=== PATIENT | male | born 1950 | race Caucasian/White ===

== ENCOUNTER → 2017-11-07 14:49 | Outpatient (CLI) | payer MEDICARE, OTHER, SELFPAY ==
--- NOTE | 2017-11-07 14:58 | CA_ITS ---
PROCEDURE: 2-D M-mode and color Doppler study INDICATIONS FOR THE TEST: Chest pain COPD Heart Murmur Tobacco Smoking Palpitations Fatigue Syncope Edema Hypertension Diabetes Mellitus Rheumatic Fever SOB DOEXObesity Hyperlipidemia Family History HD Additional History H/O IRREG HR PATIENT INFORMATION HEIGHT: 73 WEIGHT:212 GENDER: Male B/P:136/80 2-D/M-MODE INTERPRETATION: 2-D MEASUREMENTS OBSERVED VALUES IN CMS Right Ventricular Dimension (RVDd) 2.8 Interventricular Septum (Thickness)(IVsd) .8 Left Ventricular Internal Dimensions(LVIDd) 4.8 Left Ventricular Posterior Wall (Thickness)(LVPWd) .8 Aortic Root 3.2 Aortic Cusp Separation 2.4 Left Atrial Dimensions (LAD) 3.2 2D 1. Left atrium is qualitatively mildly enlarged, left ventricle is qualitatively mildly dilated, there is no concentric left ventricular hypertrophy, visually estimated ejection fraction 55% with no obvious regional wall motion abnormality. 2. The right atrium is normal size, right ventricle is mildly enlarged with normal contractility. 3. The aortic valve is trileaflet, thickened and calcified leaflet continue to display mobility. 4. The mitral and tricuspid valve leaflets are minimally thickened. 5. The pulmonic valve is poorly visualized. 6. No significant pericardial effusion noted. DOPPLER INTERROGATION: Doppler interrogation of the aortic, mitral and tricuspid valvular presence of severe aortic, mild mitral and tricuspid regurgitation, tricuspid and jet velocity insufficient for calculation of the right ventricular systolic pressure, diastolic parameters are inconclusive. CONCLUSION: 1. Mildly enlarged left atrium, mildly dilated left ventricle, preserved left ventricular systolic function, visually estimated ejection fraction 55% with no obvious regional wall motion abnormality diastolic parameters are inconclusive. 2. Thickened and calcified aortic valve without aortic stenosis, there is severe aortic insufficiency 3. Mild mitral and tricuspid regurgitation 4. No significant pericardial effusion noted.
== END ==
PROVIDERS: PCP Internal Medicine; Visit Provider Internal Medicine
DX: R06.02 Shortness of breath (principal)
CPT/HCPCS: 93306

== ENCOUNTER 2017-11-30 10:49 | Day surgery (SDC) | payer MEDICARE, OTHER, SELFPAY ==
[2017-11-30] VITALS (8 sets, daily range): BP systolic 114–161; BP diastolic 67–87; PULSE 55–62; RESP 18–20; O2SAT 97–98; BMI 29.4
--- NOTE | 2017-11-30 10:55 | CA_ITS ---
Procedure: Transesophageal echocardiogram Indication for procedure: Shortness of breath, aortic insufficiency. Procedure: Patient was brought into cardiac catheter lab holding area in hemodynamically stable condition, after the informed consent, conscious sedation was provided by anesthesiologist, local anesthesia was applied, and transesophageal echocardiogram was performed without any difficulty. Patient tolerated the procedure well. Findings: 1. Left atrium is mildly enlarged, left atrial appendage is free of thrombus, there is good appendage flow by spectral Doppler. 2. The right atrium is normal size, 3. The intra-atrial septum is intact, there is no flow across the intra-atrial septum, agitated saline contrast study fails to identify intracardiac shunt. 4. The aortic valve leaflets are minimally thickened, there are significant degenerative changes seen on the right coronary cusp, possibility of regurgitation cannot be excluded. There is no aortic stenosis, there is severe aortic insufficiency. 5. The mitral valve leaflets are minimally thickened, there is mild prolapse of the posterior mitral leaflet, there is mild mitral regurgitation, spectral Doppler of the pulmonary vein is normal. 6. The tricuspid valve leaflets are minimally thickened, there is mild tricuspid regurgitation 7. The pulmonic valve is grossly normal. 8. The right ventricle is normal size and contractility. 9. The left ventricle is normal size, there is overall preserved left ventricular systolic function, visually estimated ejection fraction of 55-60% with no obvious regional wall motion abnormality. 10. Ascending, arch and descending thoracic aorta is normal. Conclusion: 1. Mildly enlarged left atrium, normal left ventricular size, preserved left ventricular systolic function, visually estimated ejection fraction 55-60% with no obvious regional wall motion abnormality. 2. Abnormally aortic valve is described above associated with severe aortic insufficiency 3. Mitral valve prolapse associated with mild mitral regurgitation 4. Agitated saline contrast study fails to identify intracardiac shunt 5. No significant pericardial effusion noted.
--- NOTE | 2017-11-30 12:39 | P.PN_ITS ---
[facility] Anesthesia Checklist - Structural Data Admitted From: Home Planned Operative Procedure/s: radha Consent for Planned Operative Procedure(s) Verified: Yes - Airway Assessment C-Spine Mobility Assessed: Yes TMJ Mobility Assessed: Yes Dentition: Good Dentition - Neurological Assessment Level of Consciousness: Awake, Alert - Anesthesia Plan Anesthesia Risk discussed: Yes Anesthesia Plan: Verified ASA Class: III Anesthesia Type: MAC [facility] Anesthesia HX I have reviewed the patient's past medical history: Yes Medical History: Reports:: Hypertension, Supraventricular Tachycardia Denies:: Cancer, Diabetes Mellitus Type 1, Diabetes Mellitus Type 2, MRSA, Seizures Other Surgeries: Yes: No Previous Surgery Amputation: No Fractures: No *Family Hx:: No significant family history
== END 2017-11-30 14:20 | disposition home or self-care (01) ==
PROVIDERS: PCP Internal Medicine; Visit Provider Internal Medicine Cardiovascular Disease
DX: I35.1 Nonrheumatic aortic (valve) insufficiency (principal)
CPT/HCPCS: 93312

== ENCOUNTER 2017-12-01 07:59 | Day surgery (SDC) | payer MEDICARE, OTHER, SELFPAY ==
[2017-12-01] VITALS (20 sets, daily range): BP systolic 94–133; BP diastolic 43–82; PULSE 45–63; RESP 16–18; TEMP 36.9–37.1; O2SAT 90–100; BMI 29.4
--- NOTE | 2017-12-01 | IR_ITS ---
CARDIAC CATHETERIZATION DATE OF CATHETERIZATION:12/01/2017 1:23 PM PROCEDURES: 1. Right heart catheterization 2. Left heart catheterization 3. Left ventriculogram 4. Selective coronary angiogram 5. Catheter placement in the ascending aorta 6. Ascending aortography INDICATION FOR TEST: 1. Severe aortic insufficiency 2. Preoperative evaluation for mitral valve replacement 3. Hypertension Informed consent was obtained prior to the procedure. COMPLICATIONS: None ESTIMATED BLOOD LOSS: Less than 10 ml. TECHNIQUE: One percent lidocaine was used to anesthetize the right anterior aspect of the right wrist. The right radial artery was accessed via the Seldinger technique and a 6 English hydrophilic sheath was placed in the right radial artery. Following this one percent lidocaine was used to anesthetize the right anterior aspect of the right neck. The right internal jugular vein was accessed via the Seldinger technique and a 7 English sheath was placed in the right internal jugular vein. Following this an arterial cocktail was administered using heparin verapamil and nitroglycerin into the right radial sheath. Over the wire a pigtail catheter was placed in the ascending aorta and ascending aortography was performed A trap catheter was used to perform left heart catheterization left ventriculogram and selective coronary angiography while a Colmesneil-Selina catheter was used to perform right heart catheterization. Saturations were obtained in the pulmonary artery and right atrium. At the end of the procedure the arterial sheath was removed good hemostasis was achieved using Traclet band. Patient was transferred to the postop holding area in stable condition for venous sheath removal ANGIOGRAPHIC RESULTS: 1. The left main artery normal 2. The left anterior descending artery has normal 3. The circumflex artery is dominant and normal 4. The right coronary artery nondominant normal 5. The CAIN ventriculogram reveals 65% 6. The left ventricular end-diastolic pressure 10 mmHg 7. The caty ascending transverse and proximal descending aorta is of normal caliber. +4 aortic insufficiency is identified HEMODYNAMICS: Right atrial pressure is 12 mm Hg. Pulmonary arterial pressure is 32/18 mm Hg. Pulmonary artery occlusion pressure is 15 mm Hg. SATURATIONS: RA is 80 %. PA is 77 %. IMPRESSION: 1. Normal coronary arteries 2. Normal ejection fraction 3. Normal ascending transverse and proximal descending aorta caliber 4. 4+ aortic insufficiency 5. Mild pulmonary hypertension PLAN: 1. Will referred to Dr. FLORES for additional recommendations
[2017-12-01 08:56] LABS: Eosinophils # 0.2 K/mm3 (0.0-0.4); Eosinophils % 4.9 % (0.1-12.0); Hematocrit 45.8 % (42.0-52.0); Lymphocytes % 23.6 K/mm3 (10-50); Mean Corpuscular HGB Conc 32.7 g/dL (31.8-35.4); Mean Corpuscular Hemoglobin 28.8 pg (27.0-31.2); Mean Corpuscular Volume 88.2 fl (80-94); Mean Platelet Volume 7.3 fl (7.4-10.4); Monocytes # 0.2 K/mm3 (0.1-1.0); Monocytes % 5.8 % (1.7-9.3); Neutrophils # 2.7 K/mm3 (1.8-7.8); Neutrophils % 64.8 % (37.0-80.0); Platelet Count 253 K/mm3 (142-424); Red Cell Distribution Width 13.3 % (11.5-17.5); White Blood Count 4.2 K/mm3 (4.8-10.8)
[2017-12-01 09:02] LABS: Anion Gap 9.2 mEq/L (5-15); Blood Urea Nitrogen 17 mg/dL (7-18); Carbon Dioxide 28 mmol/L (21.0-32.0); Chloride 105 mmol/L (98-107); Creatinine Clearance Estimated 93 mL/min (0-300); Creatinine,Serum 1.07 mg/dL (0.70-1.30); Estimated Glomerular Filt Rate 69 ml/min (>60); GFR (African American) 83 ML/MIN (>60); Glucose 109 mg/dL (74-106); Potassium 4.2 mmoL/L (3.5-5.1); Sodium 138 mmol/L (136-145)
== END 2017-12-01 16:59 | disposition home or self-care (01) ==
LOC: CATHLAB 08:00
PROVIDERS: PCP Internal Medicine; Visit Provider Internal Medicine
DX: I35.1 Nonrheumatic aortic (valve) insufficiency (principal); R06.09 Other forms of dyspnea; I10 Essential (primary) hypertension; R93.1 Abnormal findings on diagnostic imaging of heart and coronary circulation
CPT/HCPCS: 80048; 85025; 93460; 93567; 99152; C1725; C1769; C1894; J1644; Q9966; Q9967

== ENCOUNTER → 2017-12-05 08:34 | Outpatient (CLI) | payer MEDICARE, OTHER, SELFPAY | PROVIDERS: Visit Provider Physician Assistant | DX: I47.1 Supraventricular tachycardia (principal); I10 Essential (primary) hypertension; I44.0 Atrioventricular block, first degree; I35.1 Nonrheumatic aortic (valve) insufficiency; I38 Endocarditis, valve unspecified; R06.09 Other forms of dyspnea; R93.1 Abnormal findings on diagnostic imaging of heart and coronary circulation | CPT/HCPCS: 36415; 87040 ==

== ENCOUNTER 2018-02-01 12:55 | Outpatient (RCR) | payer MEDICARE, OTHER, SELFPAY | END 2018-03-12 14:57 | disposition home or self-care (01) | LOC: PT 12:55 | PROVIDERS: PCP Internal Medicine; Visit Provider Thoracic Surgery (Cardiothoracic Vascular Surgery) | DX: Z45.2 Encounter for adjustment and management of vascular access device (principal) | CPT/HCPCS: 93798 ==

== ENCOUNTER → 2019-03-18 11:02 | Outpatient (CLI) | payer MEDICARE, OTHER, SELFPAY ==
--- NOTE | 2019-03-18 11:05 | CA_ITS ---
PROCEDURE: 2-D M-mode and color Doppler study INDICATIONS FOR THE TEST: Chest pain COPD Heart Murmur Tobacco Smoking Palpitations Fatigue Syncope Edema Hypertension+Diabetes Mellitus Rheumatic Fever SOB NOAV Obesity Hyperlipidemia Family History HD Additional History AV replacement 2018,bradycardia PATIENT INFORMATION HEIGHT:72 WEIGHT:214 GENDER: Male B/P:114/72 2-D/M-MODE INTERPRETATION: 2-D MEASUREMENTS OBSERVED VALUES IN CMS Right Ventricular Dimension (RVDd) 2.7 Interventricular Septum (Thickness)(IVsd) 1.1 Left Ventricular Internal Dimensions(LVIDd) 4.2 Left Ventricular Posterior Wall (Thickness)(LVPWd) 0.9 Aortic Root 2.8 Aortic Cusp Separation 1.8 Left Atrial Dimensions (LAD) 4.3 2D 1. Left atrium is mildly enlarged, left ventricle is normal size, there is mild concentric left ventricular hypertrophy, visually estimated ejection fraction 50% with no regional wall motion abnormality. 2. The right atrium and right ventricle are normal size and contractility. 3. There is mild prosthetic valve noted in the aortic position, the valve is well seated. 4. The mitral and tricuspid valve leaflets are minimally thickened. 5. The pulmonic valve is poorly visualized. 6. No significant pericardial effusion noted. DOPPLER INTERROGATION: 1. The maximum aortic out flow velocity recorded across the prosthetic valve is 2.4 m/s, resulting in a mean gradient across valve of 12 mm of mild aortic, valve area is 1.7 sq cm, which does not represent any significant aortic outflow obstruction, there is no aortic insufficiency. 2. The mitral inflow velocity within normal range, there is no mitral stenosis, there is mild mitral regurgitation. Grade 1 diastolic dysfunction seen without tissue Doppler evidence of raised left atrial pressure. 3. There is mild tricuspid regurgitation noted, tricuspid regurgitation jet velocity is inadequate for calculation of the right ventricular systolic pressure. CONCLUSION: 1. Mildly enlarged left atrium, normal left ventricular size, mild concentric left ventricular hypertrophy, visually estimated ejection fraction 50% with no regional wall motion abnormality, grade 1 diastolic dysfunction seen without tissue Doppler evidence of raised left atrial pressure. 2. Normal functioning bio prosthetic valve in aortic position 3. No significant pericardial effusion noted.
== END ==
PROVIDERS: PCP Internal Medicine; Visit Provider Urology
DX: Z95.4 Presence of other heart-valve replacement (principal)
CPT/HCPCS: 93306

== ENCOUNTER → 2020-11-24 12:54 | Outpatient (CLI) | payer MEDICARE, OTHER, SELFPAY | PROVIDERS: PCP Internal Medicine; Visit Provider Urology | DX: I10 Essential (primary) hypertension (principal); I51.89 Other ill-defined heart diseases; R00.1 Bradycardia, unspecified; Z95.4 Presence of other heart-valve replacement | CPT/HCPCS: 93306 ==

== ENCOUNTER → 2021-12-10 12:39 | Outpatient (CLI) | payer MEDICARE, OTHER, SELFPAY ==
[2021-12-10 14:25] LABS: Basophils # 0.1 K/mm3 (0-0.2); Basophils % 1.3 % (0.1-2.0); Eosinophils # 0.3 K/mm3 (0.0-0.4); Eosinophils % 5.3 % (0.1-12.0); Hematocrit 43.3 % (42.0-52.0); Hemoglobin 14.6 g/dL (14.1-18.0); Lymphocytes # 1.2 K/mm3 (0.7-4.5); Lymphocytes % 23.6 % (10-50); Mean Corpuscular HGB Conc 33.7 g/dL (31.8-35.4); Mean Corpuscular Hemoglobin 30.4 pg (27.0-31.2); Mean Platelet Volume 8.7 fl (7.4-10.4); Monocytes # 0.3 K/mm3 (0.1-1.0); Monocytes % 6.3 % (1.7-9.3); Neutrophils # 3.1 K/mm3 (1.8-7.8); Neutrophils % 63.5 % (37.0-80.0); Platelet Count 286 K/mm3 (142-424); Red Cell Distribution Width 13.9 % (11.5-17.5); White Blood Count 4.9 K/mm3 (4.8-10.8)
[2021-12-10 16:26] LABS: Alanine Aminotransferase 26 U/L (12-78); Albumin Level 4.1 g/dl (3.5-5.0); Albumin/Globulin Ratio 1.6 (1.1-1.8); Alkaline Phosphatase 47 U/L (38-126); Anion Gap 11.6 mEq/L (5-15); Aspartate Amino Transferase 28 U/L (17-59); Blood Urea Nitrogen 21 mg/dl (9-20); Calcium 8.3 mg/dl (8.4-10.2); Carbon Dioxide 26 mmol/L (22.0-30.0); Chloride 103 mmol/L (98-107); Chol/HDL Ratio 3.9 (1-3.5); Cholesterol 225 mg/dl (140-200); Estimated Glomerular Filt Rate 95 ml/min (>60); GFR (African American) 115 ML/MIN (>60); Globulin 2.5 g/dL (1.3-3.2); Glucose 89 mg/dl (74-100); HDL Cholesterol 57 mg/dl (40-60); Potassium 4.6 mmoL/L (3.5-5.1); Sodium 136 mmol/L (136-145); Total Protein,Serum 6.6 g/dl (6.3-8.2); Triglycerides 90 mg/dl (30-150); VLDL Cholesterol 18 mg/dL (0-40)
[2021-12-10 16:37] LABS: Direct LDL Cholesterol 123.51 mg/dL (100-129)
[2021-12-10 16:56] LABS: Prostate Specific Ag Screen 1.4 ng/ml (0.0-4.0)
== END ==
PROVIDERS: Visit Provider Internal Medicine
DX: I35.1 Nonrheumatic aortic (valve) insufficiency (principal); I47.1 Supraventricular tachycardia; R73.01 Impaired fasting glucose; E78.5 Hyperlipidemia, unspecified; Z12.5 Encounter for screening for malignant neoplasm of prostate
CPT/HCPCS: 80053; 80061; 85025; G0103

== ENCOUNTER → 2021-12-29 09:12 | Outpatient (CLI) | payer MEDICARE, OTHER, SELFPAY ==
--- NOTE | 2021-12-29 09:13 | CA_ITS ---
APPROVED REPORT EXAM: Comprehensive 2D, Doppler, and color-flow Echocardiogram Statement Distribution Clerk: Leslye Lance, RCS, RVS Ht: 6 ft 0 in Wt: 196lbs BSA: 2.11 BP: 109/73 mmHg Indications: AVR-bioprosthetic 4 years ago, Palpitations, Diastolic dysfunction, HTN. 2D Dimensions IVSd 0.99 cm LVEF (Visual) 76.20 % PWd 0.82 cm LA Volume 39.30 mL LVDd 3.94 cm LA Volume Index 18.60 mL/m2 (M/F) 16-34 LVDs 2.63 cm Aortic Root 3.05 cm Left Atrium 4.38 cm LVOT 2.03 cm (M/F) 1.5-2.5 M-Mode Dimensions RVDd 1.05 cm (0.9-2.6) LA Diam 4.04 cm (1.9-4.0) LVDd 5.93 cm (3.5-5.7) Ao Diam 3.55 cm (2.0-3.7) LVDs 4.28 cm (3.5-5.7) IVSd 1.65 cm (0.6-1.1) PWd 1.17 cm (0.6-1.1) EF (Teich) 53.10% EPSs 1.09 cm FS 27.80% EDV (Teich) 175.20 mL TAPSE 2.07 (<1.7) ESV (Teich) 82.20 mL LV Diastology E Decel Time 367.00 (160-240 msec) E/A Ratio 1.03 MED E' 8.50 (< 7 cm/sec) MED A' 8.00 cm/s E'/MED E' Ratio 6.65 (>14) LAT E' 8.80 (<10 cm/sec) LAT A' 9.50 cm/s E/LAT E' Ratio 6.42 (>14) Aortic Valve LVOT Max 102.00 (70-110 cm/s) LVOT VTI 20.46 cm AoV Peak Adonis. 216.00 (50-130 cm/s) AO Peak GR. 18.60 mmHg AO Mean GR. 9.20 (<5 mmHg) AO VTI 50.27 (18-25 cm) NISSA (VTI) 1.32 (2.5-4.5 cm2) Mitral Valve MV A Velocity 55.00 (40-130 cm/s) E/A Ratio 1.03 MV Decel. Time 367.00 (160-240 ms) MV Mean Gr. 0.60 (<2mmHg) MV PHT 107.00 ms Pulmonary Valve PV Peak Velocity 51.00 (50-150 cm/s) AK End VMAX 143.00 cm/s Tricuspid Valve TR P. Velocity 219.00 cm/s RAP Estimate 10.00 mmHg RVSP 29.10 mmHg Left Ventricle Left atrium is mildly enlarged, left ventricle is normal size, mild concentric left ventricular hypertrophy, estimated ejection fraction 55% with no regional wall motion abnormality, grade 1 diastolic dysfunction seen without tissue Doppler evidence of raise left atrial pressure. Right Ventricle Right atrium and right ventricle are mildly enlarged with normal contractility. Aortic Valve There is bioprosthetic valve noted in the aortic position valve is well-seated, the mean gradient across valve is 13 mmHg, valve area is 1.4 cm???, there is no aortic insufficiency. Mitral Valve Mitral valve has mitral annular calcification, leaflets are minimally thickened, there is no mitral stenosis, there is mild mitral regurgitation. Tricuspid Valve Tricuspid valve grossly normal, there is mild tricuspid regurgitation, tricuspid regurgitation jet velocity is inadequate for calculation of the right ventricular systolic pressure. Pulmonic Valve Pulmonic valve is poorly visualized. Great Vessels Aortic root is not well visualized. Inferior vena cava is poorly visualized. Pericardium No significant pericardial effusion noted. Conclusion 1. Mild biatrial alignment, normal left ventricular size, mild concentric left ventricular hypertrophy, estimated ejection fraction 55% with no regional wall motion abnormality, grade 1 diastolic dysfunction seen without tissue Doppler evidence of raise left atrial pressure. 2. Bioprosthetic valve in aortic position without significant aortic outflow obstruction or aortic insufficiency. 3. Mild mitral and tricuspid regurgitation. 4. No significant pericardial effusion 5. Inferior vena cava is poorly visualized. Electronically signed by : Domenico Ashraf MD 12/29/2021 21
== END ==
PROVIDERS: PCP Internal Medicine; Visit Provider Physician Assistant
DX: I44.0 Atrioventricular block, first degree (principal); R00.2 Palpitations
CPT/HCPCS: 93306

== ENCOUNTER → 2022-07-04 11:43 | Outpatient (CLI) | payer MEDICARE, OTHER, SELFPAY | PROVIDERS: PCP Internal Medicine; Visit Provider Nurse Practitioner | DX: R00.2 Palpitations (principal) | CPT/HCPCS: 93270 ==

== ENCOUNTER → 2022-07-08 07:23 | Outpatient (CLI) | payer MEDICARE, OTHER, SELFPAY ==
--- NOTE | 2022-07-08 | CA_ITS ---
APPROVED REPORT Exam: Exercise Treadmill Technologist: Natalya Sosa, Ht: 6 ft 0 in Wt: 204 lbs BSA: 2.15 m2 HR: 48 bpm BP: 134/72 mmHg Medical History Medical History: HTN Medications: Aspirin,,,,, Metoprolol,,,,, Cardiac Risk Factors: HTN Stress Test Details Test: Manual Treadmill HR Resting HR: 49 bpm Max Heart Rate (APMHR): 148.407315 bpm Max HR Achieved: 117 bpm Target HR (85% APMHR): 125.319074 bpm % of APMHR: 79.05 Recovery HR: 74 bpm BP Resting BP: 130/81 mmHg Max BP: 181/95 mmHg Recovery BP: 175.0/83.0 mmHg ECG Clinical Exercise duration: 10:46 min Highest Stage Achieved: Exercise capacity: 11.1 METs Stress ECG Conclusion During pallavi protocol pt walked 10:45, stopped due to SOA. No CP noted. No arrhythmias noted. <1.5mm ST changes. Test Summary REST . . . . . . . Sitting REST . . . . . . . Standing REST 08:00 0.0 0.0 49 . 130/ 81 . . Stage 1 01:00 10.0 1.7 68 . . . . Stage 1 02:00 10.0 1.7 71 . . . . Stage 1 03:00 10.0 1.7 69 . 159/ 85 . . Stage 2 01:00 12.0 2.5 77 . . . . Stage 2 02:00 12.0 2.5 83 . . . . Stage 2 03:00 12.0 2.5 82 . 163/ 90 . . Stage 3 01:00 14.0 3.4 90 . . . . Stage 3 02:00 14.0 3.4 98 . . . . Stage 3 03:00 14.0 3.4 98 . 181/ 95 . . Stage 4 . . . . . . . Protocol changed to Manual Treadmill Stage 4 01:00 16.0 3.4 105 . . . . Stage 4 01:46 16.0 3.4 105 . . . Stop exercise at 10:46 RECOVERY 01:00 0.0 0.0 70 . 175/ 83 . . RECOVERY 02:00 0.0 0.0 65 . 175/ 83 . . RECOVERY 03:00 0.0 0.0 58 . 150/ 78 . . RECOVERY 03:55 0.0 0.0 56 . 148/ 77 . . Electronically signed by : Domenico Ashraf MD 07/08/2022 09:47:45
--- NOTE | 2022-07-08 07:23 | NM_ITS ---
APPROVED REPORT Exam: Nuclear Stress Test Indication: C.P., PALPITATIONS, A-FIB, H/O HEART VALVE REPLACEMENT Patient Location: Outpatient Stress Tech: Natalya Sosa [place] Tech:Amy Jauregui SHLOMOKade RT (R)(N)(M) Ht: 6 ft 0 in Wt: 188 lbs HR: 48 bpm BP: 134/72 mmHg BSA: 2.08 m2 TID: 1.03 History: C.P., PALPITATIONS, A-FIB, H/O HEART VALVE REPLACEMENT Procedure: Patient exercised on Sivakumar protocol 9:45 minutes and sec, resting heart rate 48 bpm, resting blood pressure 134/72 mmHg, with exercise maximum heart rate achived was 117 bpm which is 79 % of the maximum predicted heart rate and blood pressure was 181/95 mmHg. Test was stopped due to SOA. Patient denied any complaint of chest pain. Patient has good exercise capacity, achieved 11.1 METs of workload on treadmill, the blood pressure response to exercise was Adequate. Electrocardiogram Resting electrocardiogram shows sinus rhythm, with exercise there is less than 1.[address] segment depression noted from the baseline EKG. The EKG portion of the exercise Myoview was nondiagnostic as patient did not achieve the target heart rate. Cardiac Stress and Resting SPECT Images: Cardiac Stress and Resting SPECT images were obtained using technetium 99m Myoview 31.1 mCi stress and 10.62 mCi at rest. Gated SPECT for analysis of segmental wall motion and calculation of the ejection fraction also done. Prone images were also obtained. Cardiac stress and rest SPECT images show a fixed defect in the inferior wall which normalizes on the prone images is likely secondary to diaphragmatic attenuation, no reversible ischemia seen, computer derived ejection fraction is 50% with no regional wall motion abnormality, right ventricle is normal size and contractility. Conclusion: 1. The EKG portion of the exercise Myoview was nondiagnostic as patient did not achieve the target heart rate, patient has good exercise capacity achieving 11.1 METs of workload on treadmill, the blood pressure response to exercise was adequate, there was no exercise-induced chest discomfort. 2. No scintigraphic evidence of reversible ischemia seen at this level of exercise, computer derived ejection fraction is 50% with no regional wall motion abnormality, right ventricle is normal size and contractility. 3. Normal exercise Myoview study at submaximal heart rate. Electronically signed by : Domenico Ashraf MD 07/08/2022 11:42:01
== END ==
PROVIDERS: PCP Internal Medicine; Visit Provider Nurse Practitioner
DX: R07.9 Chest pain, unspecified (principal)
CPT/HCPCS: 78452; 93017; A9502

== ENCOUNTER → 2023-05-10 11:26 | Outpatient (CLI) | payer MEDICARE, OTHER, SELFPAY | PROVIDERS: PCP Internal Medicine; Visit Provider Nurse Practitioner | DX: I10 Essential (primary) hypertension (principal); I35.1 Nonrheumatic aortic (valve) insufficiency; I44.0 Atrioventricular block, first degree; I47.1 Supraventricular tachycardia; R00.1 Bradycardia, unspecified; R00.2 Palpitations | CPT/HCPCS: 93270 ==

== ENCOUNTER → 2023-05-31 13:10 | Outpatient (CLI) | payer MEDICARE, OTHER, SELFPAY ==
[2023-05-31 16:33] LABS: Prostate Specific Ag Screen 1.3 ng/ml (0.0-4.0)
[2023-05-31 16:43] LABS: Alanine Aminotransferase 30 U/L (12-78); Albumin/Globulin Ratio 1.3 (1.1-1.8); Anion Gap 13.9 mEq/L (5-15); Aspartate Amino Transferase 28 U/L (17-59); Bilirubin,Total 0.7 mg/dl (0.2-1.3); Blood Urea Nitrogen 19 mg/dl (9-20); Calcium 8.5 mg/dl (8.4-10.2); Carbon Dioxide 23 mmol/L (22.0-30.0); Chloride 106 mmol/L (98-107); Cholesterol 225 mg/dl (140-200); Estimated Glomerular Filt Rate 83 ml/min (>60); GFR (African American) 100 ML/MIN (>60); Glucose 85 mg/dl (74-100); Potassium 4.9 mmoL/L (3.5-5.1); Sodium 138 mmol/L (136-145); Triglycerides 114 mg/dl (30-150); VLDL Cholesterol 23 mg/dL (0-40)
[2023-05-31 16:44] LABS: Alkaline Phosphatase 58 U/L (38-126); Chol/HDL Ratio 4.3 (1-3.5); HDL Cholesterol 52 mg/dl (40-60)
[2023-05-31 16:50] LABS: Basophils % 0.7 % (0.1-2.0); Eosinophils # 0.3 K/mm3 (0.0-0.4); Eosinophils % 6.9 % (0.1-12.0); Hematocrit 46.4 % (42.0-52.0); Hemoglobin 15.2 g/dL (14.1-18.0); Lymphocytes # 1.4 K/mm3 (0.7-4.5); Lymphocytes % 28.9 % (10-50); Mean Corpuscular HGB Conc 32.8 g/dL (31.8-35.4); Mean Corpuscular Hemoglobin 29.8 pg (27.0-31.2); Mean Corpuscular Volume 90.7 fl (80-94); Mean Platelet Volume 8.9 fl (7.4-10.4); Monocytes # 0.4 K/mm3 (0.1-1.0); Monocytes % 7.8 % (1.7-9.3); Neutrophils # 2.7 K/mm3 (1.8-7.8); Neutrophils % 55.6 % (37.0-80.0); Platelet Count 295 K/mm3 (142-424); Red Blood Count 5.11 M/mm3 (4.60-6.20); Red Cell Distribution Width 13.4 % (11.5-17.5); White Blood Count 4.8 K/mm3 (4.8-10.8)
[2023-05-31 16:54] LABS: Direct LDL Cholesterol 130.53 mg/dL (100-129)
== END ==
PROVIDERS: PCP Internal Medicine; Visit Provider Internal Medicine
DX: E78.5 Hyperlipidemia, unspecified (principal); Z12.5 Encounter for screening for malignant neoplasm of prostate; R73.01 Impaired fasting glucose; Z95.2 Presence of prosthetic heart valve; I35.1 Nonrheumatic aortic (valve) insufficiency; I47.1 Supraventricular tachycardia
CPT/HCPCS: 80053; 80061; 85025; G0103

== ENCOUNTER 2024-03-18 14:12 | Outpatient (CLI) | payer MEDICARE, OTHER, SELFPAY ==
--- NOTE | 2024-03-18 14:17 | CA_ITS ---
APPROVED REPORT EXAM: Comprehensive 2D, Doppler, and color-flow Echocardiogram Lockstitch Sleeve Setter: Odilia Estevez RDCS Ht: 6 ft 0 in Wt: 210lbs BSA: 2.18 BP: 121/67 mmHg Indications: AVR TISSUE,SVT, HTN,PALPS M-Mode Dimensions RVDd 1.91 cm (0.9-2.6) LA Diam 4.26 cm (1.9-4.0) LVDd 5.60 cm (3.5-5.7) LVDs 3.99 cm (3.5-5.7) IVSd 0.81 cm (0.6-1.1) PWd 0.93 cm (0.6-1.1) EF (Teich) 54.70% FS 28.80% EDV (Teich) 153.70 mL ESV (Teich) 69.60 mL LV Diastology E Decel Time 253 (160-240 msec) E/A Ratio 1.1 Aortic Valve NISSA Index 0.80 cm2/m2 AoV Peak Adonis. 223.0 (50-130 cm/s) AO Peak GR. 20.00 mmHg AO Mean GR. 9.80 (<5 mmHg) AO VTI 47.3 (18-25 cm) NISSA (VTI) 1.79 (2.5-4.5 cm2) Mitral Valve MV E Max Adonis. 54.0 (40-130 cm/s) MV A Velocity 47.0 (40-130 cm/s) E/A Ratio 1.16 MV PHT 74.0 ms Tricuspid Valve TR P. Velocity 227.00 cm/s RAP Estimate 10.00 mmHg RVSP 30.70 mmHg Left Ventricle The left ventricle is normal size. The left ventricular systolic function is normal. The left ventricular ejection fraction is within the normal range. There is increased LV wall thickness. There is normal LV segmental wall motion. The left ventricular diastolic function is normal. LVEF is 60%. Right Ventricle The right ventricle is mildly dilated. The right ventricular systolic function is normal. Atria Left atrium is mildly dilated. The right atrium is mildly dilated. There is no Doppler evidence of interatrial shunt. Aortic Valve s/p bioprosthetic AVR. Peak velocity 2.2 m/s. Mean AV gradient 5 mmHg. Max AV gradient 10 mmHg. Trace aortic regurgitation. Mitral Valve The mitral valve is normal in structure. No evidence of mitral valve stenosis. Trace mitral regurgitation. Tricuspid Valve The tricuspid valve leaflets are thin and pliable. Mild tricuspid regurgitation. RVSP is 20-25 mmHg. Pulmonic Valve Trace pulmonic regurgitation. Great Vessels The aortic root is normal in size. The ascending aorta is normal in size. IVC is normal in size and collapses >50% with inspiration. Pericardium There is no pericardial effusion. Other Information Study Quality: Fair Conclusion Normal biventricular systolic function. Mild RV dilation. Mild biatrial dilation. s/p bioprosthetic AVR (peak transaortic velocity 2.2 m/s. Mean AV gradient 5 mmHg. Max AV gradient 10 mmHg). Mild TR. Compared to prior study from 12/29/2021, the AVR parameters are overall unchanged. Electronically signed by : Floresita Olson MD 03/23/2024 21:17:56
== END 2024-03-18 23:59 | disposition home or self-care (01) ==
LOC: RT 14:13
PROVIDERS: PCP Internal Medicine; Visit Provider Nurse Practitioner Family
DX: I35.1 Nonrheumatic aortic (valve) insufficiency (principal); I44.0 Atrioventricular block, first degree; I47.10 Supraventricular tachycardia, unspecified; Z95.4 Presence of other heart-valve replacement; Z98.890 Other specified postprocedural states
CPT/HCPCS: 93306

== ENCOUNTER 2025-03-04 11:45 | Outpatient (CLI) | payer MEDICARE, OTHER, SELFPAY ==
[2025-03-04 14:15] LABS: Basophils # 0.1 K/mm3 (0-0.2); Eosinophils # 0.3 Kmm3 (0.0-0.4); Eosinophils % 5.6 % (0.1-12.0); Hemoglobin 14.7 g/dL (14.1-18.0); Immature Granulocytes # 0.02 10^3uL; Immature Granulocytes % 0.4 %; Lymphocytes # 1.3 K/mm3 (0.7-4.5); Lymphocytes % 25.7 % (10-50); Mean Corpuscular HGB Conc 33.4 g/dL (31.8-35.4); Mean Corpuscular Hemoglobin 29.1 pg (27.0-31.2); Mean Platelet Volume 9.4 fl (7.4-10.4); Monocytes # 0.5 K/mm3 (0.1-1.0); Monocytes % 8.8 % (1.7-9.3); Neutrophils # 3.1 K/mm3 (1.8-7.8); Neutrophils % 58.5 % (37.0-80.0); Nucleated Red Blood Cells # 0 10^3/uL; Nucleated Red Blood Cells % 0 %; Platelet Count 277 K/mm3 (142-424); Red Blood Count 5.06 M/mm3 (4.60-6.20); Red Cell Distribution Width 12.8 % (11.5-17.5); Red Cell Distribution Width-SD 40.6 fL; White Blood Count 5.2 K/mm3 (4.8-10.8)
[2025-03-04 14:38] LABS: Alanine Aminotransferase 21 U/L (12-78); Albumin Level 4.1 g/dl (3.5-5.0); Albumin/Globulin Ratio 1.5 (1.1-1.8); Alkaline Phosphatase 57 U/L (38-126); Anion Gap 9.9 mEq/L (5-15); Aspartate Amino Transferase 24 U/L (17-59); Bilirubin,Total 1.1 mg/dl (0.2-1.3); Blood Urea Nitrogen 17 mg/dl (9-20); Calcium 8.9 mg/dl (8.4-10.2); Carbon Dioxide 25 mmol/L (22.0-30.0); Chloride 107 mmol/L (98-107); Chol/HDL Ratio 4.1 (1-3.5); Cholesterol 225 mg/dl (140-200); Estimated Glomerular Filt Rate 82 ml/min (>60); GFR (African American) 100 ML/MIN (>60); Globulin 2.8 g/dL (1.3-3.2); Glucose 90 mg/dl (74-100); HDL Cholesterol 55 mg/dl (40-60); Potassium 4.9 mmoL/L (3.5-5.1); Sodium 137 mmol/L (136-145); Total Protein,Serum 6.9 g/dl (6.3-8.2); Triglycerides 113 mg/dl (30-150); VLDL Cholesterol 23 mg/dL (0-40)
[2025-03-04 14:50] LABS: Direct LDL Cholesterol 129.32 mg/dL (100-129)
[2025-03-04 15:08] LABS: Prostate Specific Ag Screen 1.6 ng/ml (0.0-4.0)
--- OUTSIDE RECORDS SUMMARY | 2025-03-05 11:36 | XMS_ITS | Clinical Summary ---
Author Organization Healthcare Address [address] [place] [address] Care Team Providers Care Lead Clinical Research Coordinator Name Role Phone Kashif Guillaume MD Primary Care Provider [phone] Immunizations Immunization Administration Dates Next Due Pneumococcal Polysaccharide PPV23 01/15/2018 Family History Medical History Relation Name Comments Conversions - Other Father No known health problems Other cancer Mother Relation Name Status Comments Father Mother Social History Tobacco Use Types Packs/Day Years Used Date Smoking Tobacco: Never Alcohol Use Standard Drinks/Week Comments Yes 0 (1 standard drink = 0.6 oz pur e alcohol) Sex and Gender Information Value Date Recorded Sex Assigned at Not on file Legal Sex Male 6:55 PM EDT Gender Identity Not on file Sexual Orientation Not on file Last Filed Vital Signs Vital Sign Reading Time Taken Comments Blood Pressure 112/68 02/08/2018 11:22 AM EDT Pulse 59 02/08/2018 11:22 AM EDT Temperature - - Respiratory Rate - - Oxygen Saturation - - Inhaled Oxygen Concentration - - Weight 93.8 kg (206 lb 10.9 oz) 018 11:22 AM EDT Height 182.9 cm (6') 02/08/2018 11:22 AM EDT Body Mass Index 28.03 02/08/2018 11:22 AM EDT Plan of Treatment Not on file Care Teams Lead Clinical Research Coordinator Relationship Specialty Start Date End Date Kashif Guillaume MD [id number] [place] [address] PCP - General 02/05/21
--- OUTSIDE RECORDS SUMMARY | 2025-03-05 11:36 | XMS_ITS | Clinical Summary ---
Author Organization [facility] [place] Address [address] [place] [address] Phone Care Team Providers Care [employer] Superintendent Name Role Phone Kashif Guillaume MD Primary Care Provider [phone] Surya Rojas MD Unavailable [phone] Allergies No known active allergies Medications bisoprolol (ZEBETA) 5 mg Oral Tablet Take 5 mg by mouth daily. Active aspirin 81 mg Oral Tablet, Chewable Take 81 mg by mouth daily. Active haohrxzg-vmibc-x er-kjtdo-jmap 500-66.7-500-2 mg Oral Tablet Take by mouth. Active Active Problems Problem Noted Date Diagnosed Date S/P ablation operation for arrhythmia 08/17/2016 Overview (08/17/2016): EPS/ablation for AVNRT 08/17/[address] Rojas Prediabetes HTN (hypertension) First degree AV block SVT (supraventricular tachycardia) Surgical History Surgery Date Site/Laterality Comments COLONOSCOPY ABLATION OF DYSRHYTHMIC FOCUS 08/17/2016 EPS/ablation for AVNRT Medical History Medical History Date Comments Prediabetes HTN (hypertension) First degree AV block SVT (supraventricular tachycardia) Family History Medical History Relation Name Comments Diabetes Father Relation Name Status Comments Father Mother Social History Tobacco Use Types Packs/Day Years Used Date Smoking Tobacco: Never Smokeless Tobacco: Never Tobacco Cessation:Counseling Given: No Alcohol Use Standard Drinks/Week Comments Yes 0 (1 standard drink = 0.6 oz pur e alcohol) occasional Sex and Gender Information Value Date Recorded Sex Assigned at Not on file Legal Sex Male 1:44 PM EDT Gender Identity Not on file Sexual Orientation Not on file Obstetrics History Last Filed Vital Signs Vital Sign Reading Time Taken Comments Blood Pressure 111/73 08/17/2016 1:00 PM EST Pulse 58 08/17/2016 1:00 PM EST Temperature 36.7 C (98 F) 08/17/2016 7:11 AM EST Respiratory Rate 13 08/17/2016 1:00 PM EST Oxygen Saturation 99% 08/17/2016 11:30 AM EST Inhaled Oxygen Concentration - - Weight 92.1 kg (203 lb) 08/17/2016 6:41 AM EST Height 185.4 cm (6' 1 ) 08/17/2016 6:41 AM EST Body Mass Index 26.78 08/17/2016 6:41 AM EST Plan of Treatment Health Maintenance Due Date Last Done Comments Wellness Exam Medicare 1953 Hepatitis C Screening 1968 DTaP/TDaP/Td (1 - Tdap) 1969 Pneumococcal Vaccine 50+ (1 of 2 - PCV) 1969 Cologuard 1995 FIT 1995 Sigmoidoscopy 1995 Virtual Colonography 1995 Zoster (1 of 2) 2000 COVID-19 Vaccine (1 - 2023-2 5 season) 2024 Influenza Vaccine (Season Ended) 2025 07/15/2016 (Postponed) Colon Cancer Screening 07/15/2026 Colonoscopy 07/15/2026 07/15/2016 (Postponed) Hepatitis B Vaccine Aged Out No longe r eligible based on patient's age to complete this topic Meningococcal B Vaccine Aged Out No l onger eligible based on patient's age to complete this topic Insurance MEDICARE [place] PART A AND B [employer]ER[employer] [place] MEDICARE [place] PART A AND B [employer]AYDEN Care Teams [employer] Superintendent Relationship Specialty Start Date End Date Kashif Guillaume MD [address] [facility] [address] [place] [address] PCP - General Internal Medicine 07/05/16 Surya Rojas MD [address] [place] [address] [place] [address] Consulting Physician Internal Medicine - Clinical Cardiac Electrophysiology 07/15/16
--- OUTSIDE RECORDS SUMMARY | 2025-03-05 11:36 | XMS_ITS | Encounter Summary ---
Author Organization [facility] [place] [address] Care Team Providers Care [employer] Hand Name Role Phone Kashif Guillaume MD Primary Care Provider [phone] Surya Rojas MD Unavailable [phone] Encounter Details Date Type Department Care Team (Late st Contact Info) Description 08/17/2016 Orders Only [facility] [address] [facility] [address] [place] [address] Surya Rojas MD [address] [place], [place] [id number] Social History Tobacco Use Types Packs/Day Years Used Date Smoking Tobacco: Never Smokeless Tobacco: Never Alcohol Use Standard Drinks/Week Comments Yes 0 (1 standard drink = 0.6 oz pur e alcohol) occasional Sex and Gender Information Value Date Recorded Sex Assigned at Not on file Legal Sex Male 1:44 PM EDT Gender Identity Not on file Sexual Orientation Not on file documented as of this encounter Plan of Treatment Not on file documented as of this encounter Procedures Procedure Name Priority Date/Time Associated Diagnosis Comments EP LAB RECORDINGS Routine 08/17/2016 7:15 AM EST documented in this encounter Results * EP LAB RECORDINGS (08/17/2016 7:15 AM EST) 08/17/2016 7:15 AM EST us Surya Rojas MD CARDIAC CATH ORDERABLES Final Result [facility] [address] [place] [address] documented in this encounter Visit Diagnoses Not on filedocumented in this encounter Care Teams Surface Grinding Machine Hand Relationship Specialty Start Date End Date Kashif Guillaume MD [facility] [address] [place] [address] PCP - General Internal Medicine 07/05/16 Surya Rojas MD [address] [place] [address] [place] [address] Consulting Physician Internal Medicine - Clinical Cardiac Electrophysiology 07/15/16 documented as of this encounter
== END 2025-03-04 23:59 | disposition home or self-care (01) ==
LOC: LAB.DROPOF 03-05 11:31
PROVIDERS: PCP Internal Medicine; Visit Provider Internal Medicine
DX: E78.5 Hyperlipidemia, unspecified (principal); I11.9 Hypertensive heart disease without heart failure; Z12.5 Encounter for screening for malignant neoplasm of prostate
CPT/HCPCS: 80053; 80061; 85025; G0103